=== PATIENT | female | born 1950 | race Two or more races ===

== ENCOUNTER 2018-07-17 18:20 | Emergency (ER) | payer OTHER ==
[~2018-07-17] VITALS: Ht 152.4 cm; Wt 85.7 kg
[2018-07-17] MEDS ORDERED: SYNTHROID (18:38)
[2018-07-17] MEDS ORDERED: ZANAFLEX (18:39)
[2018-07-17] MEDS ORDERED: ULTRACET (18:39)
[2018-07-17] MEDS ORDERED: PANADOL EXTRA500 MG (18:40)
== END 2018-07-17 21:08 | disposition home or self-care (01) ==
LOC: ER 18:20
DX: M65.222 Calcific tendinitis, left upper arm (principal); M79.602 Pain in left arm

== ENCOUNTER 2018-11-18 12:12 | Emergency (ER) | payer OTHER ==
[~2018-11-18] VITALS: Ht 152.4 cm; Wt 83.0 kg
[~2018-11-18 12:12] MED LIST: PANADOL EXTRA500 MG; SYNTHROID; ULTRACET; ZANAFLEX
[2018-11-18] MEDS ORDERED: CYMBALTA60 MG (12:26)
[2018-11-18] MEDS ORDERED: RESTORIL30 M1 (12:26)
[2018-11-18] MEDS ORDERED: SKELAXIN800 MG PO (17:42)
[2018-11-18] MEDS ORDERED: DICLOFENAC SOD100 MG PO (17:42)
== END 2018-11-18 17:50 | disposition home or self-care (01) ==
LOC: ER 12:12
DX: I87.2 Venous insufficiency (chronic) (peripheral) (principal); M79.605 Pain in left leg